=== PATIENT | female | born 1980 | race Caucasian/White ===

== ENCOUNTER 2017-11-02 19:35 | Inpatient (IN) | payer OTHER ==
[~2017-11-02] VITALS: Ht 157.5 cm; Wt 65.8 kg
[~2017-11-02 19:35] MED LIST: FERR325C PO; PREN1TAB52 PO; SERETIDE IH
[2017-11-02] MEDS ORDERED: SALMH IH (20:32)
[2017-11-02] MEDS ORDERED: RINGERS SOLUTION,LACTATED 1,000 ML IV SCH (20:57)
[2017-11-02] MEDS ORDERED: METOCLOPRAMIDE HCL 5 MG/ML 2 ML VIAL IVP PRN (21:00)
[2017-11-02] MEDS ORDERED: CITRIC ACID/SODIUM CITRATE 30 ML SOLUTION UDCUP PO PRN (21:00)
[2017-11-02 21:06] VITALS: BP 122/68
[2017-11-02 21:28] LABS: BASOPHILS % (AUTO) 0.6 % (0.0-2.0); EOSINOPHILS % (AUTO) 2.5 % (1.0-6.0); HEMATOCRIT 32.1 % (36-46); HEMOGLOBIN 10.6 g/dL (12.0-16.0); LYMPHOCYTES # (AUTO) 1.3 K/uL (1.0-4.8); LYMPHOCYTES % (AUTO) 15.4 % (22.0-44.0); MEAN CORPUSCULAR HEMOGLOBIN 25.5 pg (26.0-34.0); MEAN CORPUSCULAR VOLUME 77 fL (80-100); MONOCYTES # (AUTO) 0.7 K/uL (0.1-1.0); MONOCYTES % (AUTO) 7.8 % (2.0-9.0); NEUTROPHILS # (AUTO) 6.3 K/uL (1.8-7.7); NEUTROPHILS % (AUTO) 73.7 % (40.0-70.0); PLATELET COUNT (AUTO)-OB 185 K/uL (150-450); RED BLOOD CELL COUNT(AUTO) 4.15 MIL/uL (4.00-5.20); RED CELL DISTRIBUTION WIDTH 15.4 % (11.5-14.5)
[2017-11-02] MEDS ORDERED: *NON-FORMULARY MED [ENTER DRUG, DOSE, FREQ IN COMMENTS] CLINICAL ONE (22:15)
[2017-11-02] MEDS: FLUTICASONE IH SCH (22:59)
[2017-11-02] MEDS: SALMETEROL IH SCH (22:59)
[2017-11-02] MEDS ORDERED: SALMETEROL IH SCH (23:00)
[2017-11-02] MEDS ORDERED: FLUTICASONE IH SCH (23:00)
[2017-11-02] MEDS ORDERED: LIDOCAINE HCL/PF 2% 5 ML VIAL ONE (23:03)
[2017-11-02] MEDS ORDERED: ROPIVACAINE HCL 0.2% 100 ML ED ONE (23:04)
[2017-11-02] MEDS: RINGERS SOLUTION,LACTATED 1,000 ML IV PRN (23:32)
[2017-11-02] MEDS ORDERED: ROPIVACAINE HCL 0.2% 100 ML ED PRN (23:38)
[2017-11-02] MEDS ORDERED: PROMETHAZINE HCL 12.5 MG in SODIUM CHLORIDE 0.9% 50 ML IV PRN (23:45)
[2017-11-02] MEDS ORDERED: NALBUPHINE HCL 10 MG/ML VIAL IVP PRN (23:45)
[2017-11-02] MEDS ORDERED: DiphenhydrAMINE HCL 50 MG/ML VIAL IVP PRN (23:45)
[2017-11-02] MEDS ORDERED: ONDANSETRON HCL 4 MG/2 ML VIAL IVP PRN (23:45)
[2017-11-03] MEDS ORDERED: OXYTOCIN 30 UNITS/LACT RINGERS 500 ML IV ONE ×2 (00:13→00:17)
[2017-11-03] MEDS: RINGERS SOLUTION,LACTATED 1,000 ML IV PRN (00:16)
[2017-11-03] MEDS ORDERED: LIDOCAINE HCL/PF 1% 30 ML VIAL INJ PRN (00:30)
[2017-11-03] MEDS ORDERED: RINGERS SOLUTION,LACTATED 1,000 ML IV ONE (01:37)
[2017-11-03] MEDS ORDERED: BENZOCAINE 20%/MENTHOL 56 GM SPRAY CANISTER TP PRN (01:45)
[2017-11-03] MEDS ORDERED: LANOLIN 7 GM OINTMENT TP PRN (01:45)
[2017-11-03] MEDS ORDERED: OxyCODONE HCL/ACETAMINOPHEN 5-325 MG TABLET PO PRN ×2 (01:45)
[2017-11-03] MEDS ORDERED: MEASLES/MUMPS/RUBELLA VACCINE, LIVE 0.5 ML/VIAL SQ ONE (01:45)
[2017-11-03] MEDS ORDERED: GLYCERIN/WITCH HAZEL LEAF 40 PADS JAR TP PRN (01:45)
[2017-11-03] MEDS: IBUPROFEN 600 MG TABLET PO PRN ×2 (02:31→08:27)
[2017-11-03] MEDS ORDERED: INFLUENZA VIRUS VACCINE QVS 2017-18 (3YR+)/PF 60 MCG/0.5 ML SYRINGE IM ONE (04:15)
[2017-11-03] MEDS ORDERED: OXYGEN THERAPY IH SCH (08:00)
[2017-11-03] MEDS: MAGNESIUM HYDROXIDE SUSPENSION 30 ML UDCUP PO SCH ×2 (08:49→20:32)
[2017-11-03] MEDS: SALMETEROL IH SCH (09:56)
[2017-11-03] MEDS: FLUTICASONE IH SCH (09:56)
[2017-11-03] MEDS ORDERED: PNEUMOCOCCAL VACCINE POLYVALENT 0.5 ML VIAL [PPSV23] IM ONE (21:15)
[2017-11-04] MEDS ORDERED: IBUP-2070 PO (09:28)
== END 2017-11-04 11:00 | disposition home or self-care (01) | DRG 775 ==
LOC: OBSVTOIN 19:35 → 4S 19:35
PROVIDERS: ADMIT Obstetrics & Gynecology; ATTEND Obstetrics & Gynecology
PROC: 10E0XZZ Delivery of Products of Conception, External Approach (ICD-10-PCS; principal; 2017-11-03)
PROC: 0HQ9XZZ Repair Perineum Skin, External Approach (ICD-10-PCS; 2017-11-03)
PROC: 3E0R3BZ Introduction of Anesthetic Agent into Spinal Canal, Percutaneous Approach (ICD-10-PCS; 2017-11-03)
PROC: 00HU33Z Insertion of Infusion Device into Spinal Canal, Percutaneous Approach (ICD-10-PCS; 2017-11-03)
DX: O70.0 First degree perineal laceration during delivery (principal); O09.513 Supervision of elderly primigravida, third trimester; Z37.0 Single live birth; Z3A.38 38 weeks gestation of pregnancy
CPT/HCPCS: 86850; 86900; 86901; J2590; J2795; J3490; J7120